=== PATIENT | male | born 1985 | race Two or more races ===

== ENCOUNTER 2022-03-05 09:28 | Emergency (ER) | payer SELFPAY ==
[2022-03-05] MEDS ORDERED: OMNICEF 300 MG300 MG PO (10:50)
== END 2022-03-05 10:54 | disposition home or self-care (01) ==
LOC: ER1 09:28
DX: R30.0 Dysuria (principal); R10.31 Right lower quadrant pain
CPT/HCPCS: 81001; 87086; 99283

== ENCOUNTER 2022-03-11 12:02 | Emergency (ER) | payer OTHER ==
[~2022-03-11 12:02] MED LIST: OMNICEF 300 MG300 MG PO
[2022-03-11] MEDS ORDERED: DOXYCYCLINE HY100 M2 PO (15:23)
[2022-03-11] MEDS ORDERED: JOCK ITCH RELIE15 GM TP (15:23)
[2022-03-13 22:07] LABS: CHLAMYDIA TRACHOMATIS, NAA Positive (Negative); NEISSERIA GONORRHOEAE, NAA Negative (Negative)
== END 2022-03-11 15:35 | disposition home or self-care (01) ==
LOC: ER1 12:02
PROVIDERS: Physician Assistant
DX: B37.49 Other urogenital candidiasis (principal)
CPT/HCPCS: 81001; 87086; 96372; 99283; J0696